=== PATIENT | female | born 1985 | race African-American/Black ===

== ENCOUNTER 2016-09-24 14:35 | Emergency (ER) | payer MEDICAID ==
[~2016-09-24] VITALS: Ht 172.7 cm; Wt 75.0 kg
[2016-09-24] MEDS ORDERED: ONDANSETRON HCL 4MG/2ML VIAL IV STA (15:35)
[2016-09-24] MEDS ORDERED: MORPHINE SULFATE 4 MG/ML CPJ (NOT FOR IM USE) IV STA (15:35)
[2016-09-24] MEDS ORDERED: SODIUM CHLORIDE 0.9% 1,000 ML IV ONE (15:35)
[2016-09-24] MEDS ORDERED: KETOROLAC 30MG/ML VIAL IV ONE (15:45)
[2016-09-24] MEDS ORDERED: CEFTRIAXONE 1 G PREMIX 50 ML IV ONE (15:45)
[2016-09-24 16:08] LABS: BASOPHILS % 0.3 % (0.0-2.0); DIFFERENTIAL COMMENT 0; HEMATOCRIT. 34.6 % (36.0-48.0); HEMOGLOBIN. 10.8 g/dL (12.0-16.0); LYMPHOCYTES % 7.5 % (20.0-50.0); MEAN CORPUSCULAR HEMOGLOBIN 23.3 pg (28.0-32.0); MEAN CORPUSCULAR HGB CONC 31.1 g/dL (31.0-37.0); MEAN CORPUSCULAR VOLUME 74.9 fL (81.0-99.0); MEAN PLATELET VOLUME 8.5 fl (7.4-10.4); MONOCYTES % 4.4 % (2.0-8.0); NEUTROPHILS % 87.8 % (40.0-76.0); PLATELET 190 x1000/uL (130-400); RED BLOOD CELL COUNT 4.62 mill/uL (4.2-5.4); RED CELL DISTRIBUTION WIDTH 17.6 % (11.6-14.6); WHITE BLOOD COUNT 13.9 x1000/uL (4.5-11.0)
[2016-09-24 16:17] LABS: ALBUMIN 3.4 g/dL (3.4-5.0); ANION GAP 13; CALCIUM 8.8 mg/dL (8.5-10.1); CARBON DIOXIDE 30 mEq/L (21-32); CHLORIDE 99 mEq/L (98-107); INDEX HEMOLYSI 1 (1-3); INDEX ICTERIC 1 (1-4); INDEX LIPEMIC 1 (1-3); INR 1.1; LIPASE 62 IU/L (73-393); PARTIAL THROMBOPLASTIN TIME 29.3 sec (24.0-34.0); PROTHROMBIN TIME 11.6 sec; UREA NITROGEN BLOOD 6 mg/dL (7-21)
[2016-09-24 16:22] LABS: HCG SCREEN NEGATIVE
[2016-09-24 16:23] LABS: ALANINE AMINOTRANSFERASE 27 IU/L (13-61); eGFR > 60 mL/min (>60)
[2016-09-24 16:26] LABS: LACTIC ACID 2.6 mmol/L (0.4-2.0)
[2016-09-24] MEDS ORDERED: SODIUM CHLORIDE 0.9% 1000ML BAG (SEPSIS BOLUS) IV ONE (16:45)
[2016-09-24 16:57] VITALS: BP 98/48
== END 2016-09-24 18:11 | disposition left against medical advice (07) ==
LOC: ER 16:26
DX: R10.9 Unspecified abdominal pain (principal); R11.2 Nausea with vomiting, unspecified; R65.10 Systemic inflammatory response syndrome (SIRS) of non-infectious origin without acute organ dysfunction; R39.15 Urgency of urination; R30.0 Dysuria; R07.89 Other chest pain
CPT/HCPCS: 36415; 80053; 83605; 83690; 84703; 85025; 85610; 85730; 87040; 93005; 96361; 96365; 96375; 99285; J0696; J1885; J2270; J2405; J7030; Z7610

== ENCOUNTER 2016-09-25 14:38 | Emergency (ER) | payer MEDICAID ==
[~2016-09-25] VITALS: Ht 157.5 cm; Wt 73.0 kg
[2016-09-25] MEDS ORDERED: SODIUM CHLORIDE 0.9% 1,000 ML IV ONE (17:28)
[2016-09-25] MEDS ORDERED: ONDANSETRON HCL 4MG/2ML VIAL IV STA (17:28)
[2016-09-25] MEDS ORDERED: KETOROLAC 30MG/ML VIAL IV STA (17:28)
[2016-09-25 18:00] LABS: CLARITY URINE CLOUDY (CLEAR); COLOR URINE YELLOW (YELLOW); GLUCOSE URINE NEGATIVE (NEGATIVE); KETONES URINE NEGATIVE (NEGATIVE); LEUKOCYTE ESTERASE URINE 3+ (NEGATIVE); NITRITE URINE NEGATIVE (NEGATIVE); OCCULT BLOOD URINE NEGATIVE (NEGATIVE); PROTEIN URINE NEGATIVE (NEGATIVE); SPECIFIC GRAVITY URINE 1.018 (1.005-1.030)
[2016-09-25 18:01] LABS: BASOPHILS % 0.3 % (0.0-2.0); DIFFERENTIAL COMMENT 0; EOSINOPHILS % 0.7 % (0.0-5.0); HEMOGLOBIN. 9.8 g/dL (12.0-16.0); LYMPHOCYTES % 14.4 % (20.0-50.0); MEAN CORPUSCULAR HEMOGLOBIN 23.6 pg (28.0-32.0); MEAN CORPUSCULAR HGB CONC 31.5 g/dL (31.0-37.0); MEAN CORPUSCULAR VOLUME 74.7 fL (81.0-99.0); MEAN PLATELET VOLUME 8.6 fl (7.4-10.4); MONOCYTES % 7.9 % (2.0-8.0); NEUTROPHILS % 76.7 % (40.0-76.0); PLATELET 186 x1000/uL (130-400); RED BLOOD CELL COUNT 4.15 mill/uL (4.2-5.4); RED CELL DISTRIBUTION WIDTH 17.5 % (11.6-14.6); WHITE BLOOD COUNT 8.8 x1000/uL (4.5-11.0)
[2016-09-25 18:07] LABS: PROTHROMBIN TIME 10.6 sec
[2016-09-25 18:17] LABS: ALANINE AMINOTRANSFERASE 21 IU/L (13-61); ANION GAP 12; CALCIUM 8.4 mg/dL (8.5-10.1); CARBON DIOXIDE 30 mEq/L (21-32); CHLORIDE 102 mEq/L (98-107); INDEX HEMOLYSI 1 (1-3); INDEX ICTERIC 1 (1-4); INDEX LIPEMIC 1 (1-3); LIPASE 170 IU/L (73-393); UREA NITROGEN BLOOD 6 mg/dL (7-21); eGFR > 60 mL/min (>60)
[2016-09-25 18:23] LABS: BACTERIA URINE 1+; RBC URINE 0-2 /hpf (0-2); SQUAMOUS EPITHELIAL CELL URINE 1+ /lpf (RARE/1+)
[2016-09-25] MEDS ORDERED: CEFTRIAXONE 1 G PREMIX 50 ML IV ONE (19:45)
[2016-09-25 19:51] VITALS: BP 102/58
[2016-09-25] MEDS ORDERED: ACETAMINOPHEN WITH CODEINE 300/30MG TABLET PO ONE (20:30)
== END 2016-09-25 20:52 | disposition home or self-care (01) ==
LOC: ER 14:48
DX: N39.0 Urinary tract infection, site not specified (principal); R10.31 Right lower quadrant pain; R10.11 Right upper quadrant pain; F17.200 Nicotine dependence, unspecified, uncomplicated
CPT/HCPCS: 36415; 74176; 80053; 81001; 81025; 83690; 85025; 85610; 96361; 96365; 96375; 99285; J0696; J1885; J2405; J7030; Z7610

== ENCOUNTER 2019-11-21 21:29 | Emergency (ER) | payer MEDICAID ==
[~2019-11-21] VITALS: Ht 162.6 cm; Wt 77.0 kg
[2019-11-21] MEDS ORDERED: KETOROLAC 30MG/ML VIAL IV ONE (22:45)
[2019-11-21 23:11] LABS: HEMATOCRIT 40.3 % (36.0-48.0); HEMOGLOBIN 13.2 g/dL (12.0-16.0); MEAN CORPUSCULAR HEMOGLOBIN 25.3 pg (28.0-32.0); MEAN CORPUSCULAR VOLUME 77.2 fL (81.0-99.0); PLATELET 246 x1000/uL (130-400); RED BLOOD CELL COUNT 5.22 mill/uL (4.2-5.4); RED CELL DISTRIBUTION WIDTH 17.4 % (11.6-14.6)
[2019-11-21 23:19] LABS: CHLORIDE 106 mEq/L (98-107)
[2019-11-21 23:24] LABS: ETHANOL BLOOD < 10 mg/dL
[2019-11-21] MEDS ORDERED: PROPOFOL 200MG/20ML VIAL IV ONE (23:45)
[2019-11-21] MEDS ORDERED: KETAMINE HCL 50 MG/ML 10ML IV ONE (23:45)
[2019-11-22 02:41] VITALS: BP 118/76
== END 2019-11-22 02:41 | disposition home or self-care (01) ==
LOC: ER 21:29
DX: S43.014A Anterior dislocation of right humerus, initial encounter (principal); W01.198A Fall on same level from slipping, tripping and stumbling with subsequent striking against other object, initial encounter; Y93.89 Activity, other specified; Y92.89 Other specified places as the place of occurrence of the external cause; F12.90 Cannabis use, unspecified, uncomplicated; Z72.89 Other problems related to lifestyle
CPT/HCPCS: 23650; 36415; 73020; 73030; 80053; 80320; 85027; 96374; 99152; 99285; J1885; J2704; J3490; G0480

== ENCOUNTER 2020-07-25 22:01 | Emergency (ER) | payer MEDICAID ==
[~2020-07-25] VITALS: Ht 154.9 cm; Wt 69.0 kg
[2020-07-25] MEDS ORDERED: FENTANYL CITRATE/PF 50MCG/ML 2ML VIAL IV ONE (22:30)
[2020-07-25] MEDS ORDERED: KETAMINE HCL 50 MG/ML 10ML IV ONE (23:45)
[2020-07-25] MEDS ORDERED: PROPOFOL 200MG/20ML VIAL IV ONE (23:45)
[2020-07-26 01:54] VITALS: BP 121/74
== END 2020-07-26 01:59 | disposition home or self-care (01) ==
LOC: ER 22:01
DX: S43.004A Unspecified dislocation of right shoulder joint, initial encounter (principal); W06.XXXA Fall from bed, initial encounter; Y93.84 Activity, sleeping; Y92.013 Bedroom of single-family (private) house as the place of occurrence of the external cause; F12.90 Cannabis use, unspecified, uncomplicated
CPT/HCPCS: 73030; 93005; 96374; 99285; J2704; J3010; J3490

== ENCOUNTER 2021-05-10 20:38 | Emergency (ER) | payer MEDICAID ==
[~2021-05-10] VITALS: Ht 157.5 cm; Wt 73.0 kg
[~2021-05-10 20:38] MED LIST: AMOX-424 MT
[2021-05-10] MEDS: DIAZEPAM 5 MG TABLET PO ONE (22:30)
[2021-05-10] MEDS: ONDANSETRON 4MG ODT PO ONE (22:30)
[2021-05-10] MEDS: HYDROCODONE/ACETAMINOPHEN 5/325MG TABLET PO ONE (22:30)
[2021-05-11 00:29] LABS: *BARBITURATES SCREEN URINE NEGATIVE (NEGATIVE)
[2021-05-11 00:31] LABS: *BENZODIAZEPINES SCREEN URINE NEGATIVE (NEGATIVE); *COCAINE SCREEN URINE NEGATIVE (NEGATIVE); METHADONE URINE SCREEN NEGATIVE (NEGATIVE); OPIATES URINE SCREEN NEGATIVE (NEGATIVE); PHENCYCLIDINE URINE SCREEN NEGATIVE (NEGATIVE)
[2021-05-11 00:32] LABS: *AMPHETAMINES SCREEN URINE PRESUMTIVE POSITIVE (NEGATIVE); CANNABINOID URINE SCREEN PRESUMTIVE POSITIVE (NEGATIVE)
[2021-05-11] MEDS ORDERED: IBUP-2029 MT (00:39)
[2021-05-11] MEDS ORDERED: METH-773 MT (00:39)
[2021-05-11 02:11] VITALS: BP 125/79
== END 2021-05-11 02:12 | disposition home or self-care (01) ==
LOC: ER 20:38
DX: M25.511 Pain in right shoulder (principal); M25.521 Pain in right elbow; F12.10 Cannabis abuse, uncomplicated; F15.10 Other stimulant abuse, uncomplicated; Z98.890 Other specified postprocedural states
CPT/HCPCS: 72100; 73030; 73070; 80305; 81025; 99284; Q0162

== ENCOUNTER 2021-09-24 01:05 | Emergency (ER) | payer MEDICAID, OTHER ==
[~2021-09-24] VITALS: Ht 154.9 cm; Wt 73.0 kg
[~2021-09-24 01:05] MED LIST changes: +IBUP-2029 MT; +METH-773 MT
[2021-09-24 01:22] VITALS: BP 138/84
[2021-09-24] MEDS ORDERED: TETRACAINE 0.5% OPHTH DROPS 4ML LEFTEYE ONE (01:45)
[2021-09-24] MEDS ORDERED: FLUORESCEIN SODIUM 1MG/STRIP LEFTEYE ONE (01:45)
[2021-09-24] MEDS ORDERED: POLY10DR LEFTEYE (03:09)
== END 2021-09-24 03:22 | disposition home or self-care (01) ==
LOC: ER 01:05
DX: H10.89 Other conjunctivitis (principal)
CPT/HCPCS: 99283

== ENCOUNTER 2022-05-17 13:26 | Emergency (ER) | payer OTHER ==
[~2022-05-17] VITALS: Ht 175.3 cm; Wt 91.0 kg
[~2022-05-17 13:26] MED LIST changes: +POLY10DR LEFTEYE
[2022-05-17 13:29] VITALS: BP 123/83
== END 2022-05-17 17:16 | disposition left against medical advice (07) ==
LOC: ER 13:26
DX: Z53.21 Procedure and treatment not carried out due to patient leaving prior to being seen by health care provider (principal)

== ENCOUNTER 2022-08-14 17:05 | Emergency (ER) | payer MEDICAID, OTHER ==
[~2022-08-14] VITALS: Ht 154.9 cm; Wt 73.0 kg
[2022-08-14 17:19] VITALS: BP 130/80
== END 2022-08-14 20:47 | disposition left against medical advice (07) ==
LOC: ER 17:05
DX: M25.511 Pain in right shoulder (principal); H92.02 Otalgia, left ear
CPT/HCPCS: 73030; 99283

== ENCOUNTER 2023-02-01 03:41 | Emergency (ER) | payer OTHER ==
[~2023-02-01] VITALS: Ht 154.9 cm; Wt 73.2 kg
[2023-02-01 03:45] VITALS: BP 135/97; RESP 12; TEMP 98; O2SAT 100
[2023-02-01 03:47] VITALS: PULSE 120
[2023-02-01] MEDS ORDERED: ACETAMINOPHEN 325MG TABLET PO ONE (04:15)
[2023-02-01] MEDS ORDERED: CLIN-194 MT (05:23)
[2023-02-01] MEDS ORDERED: LIDOCAINE HCL/PF 1% 10 MG/ML 5ML VIAL INFIL ONE (05:30)
[2023-02-01] MEDS ORDERED: AMOX1TAB16 MT (05:59)
[2023-02-01] MEDS ORDERED: NAPR-1176 MT (06:00)
[2023-02-01] MEDS ORDERED: KETOROLAC 30MG/ML VIAL IM ONE (06:00)
== END 2023-02-01 06:29 | disposition home or self-care (01) ==
LOC: ER 03:41
DX: L03.012 Cellulitis of left finger (principal); Z98.890 Other specified postprocedural states
CPT/HCPCS: 81025; 73130; 10060; 99283; J1885; J3490; Z7610 ×2

== ENCOUNTER 2023-05-11 01:21 | Emergency (ER) | payer OTHER ==
[~2023-05-11] VITALS: Ht 160 cm; Wt 73.0 kg
[~2023-05-11 01:21] MED LIST changes: +AMOX1TAB16 MT; +NAPR-1176 MT
[2023-05-11 01:23] VITALS: BP 139/95; RESP 18; TEMP 98.1; O2SAT 100
[2023-05-11 01:24] VITALS: PULSE 100
[2023-05-11] MEDS ORDERED: CEPH500T MT (01:44)
[2023-05-11] MEDS ORDERED: TETANUS, DIPHTHERIA, PERTUSSIS VAC/PF 0.5ML (>10YR OLD) IM ONE (01:45)
== END 2023-05-11 02:31 | disposition home or self-care (01) ==
LOC: ER 01:25
DX: K13.0 Diseases of lips (principal); F12.10 Cannabis abuse, uncomplicated; Z79.899 Other long term (current) drug therapy
CPT/HCPCS: 90715; 90471; 99283; Z7610

== ENCOUNTER 2024-01-26 12:04 | Emergency (ER) | payer OTHER ==
[~2024-01-26] VITALS: Ht 154.9 cm; Wt 82.0 kg
[~2024-01-26 12:04] MED LIST changes: +CEPH500T MT
[2024-01-26 12:08] VITALS: O2SAT 100
[2024-01-26 12:38] LABS: BASOPHILS % 0.5 % (0.0-2.0); DIFFERENTIAL COMMENT 0; EOSINOPHILS % 1.9 % (0.0-5.0); HEMATOCRIT. 33.8 % (36.0-48.0); HEMOGLOBIN. 10.7 g/dL (12.0-16.0); LYMPHOCYTES % 23.5 % (20.0-50.0); MEAN CORPUSCULAR HGB CONC 31.6 g/dL (31.0-37.0); MEAN CORPUSCULAR VOLUME 72.7 fL (81.0-99.0); MEAN PLATELET VOLUME 8.1 fl (7.4-10.4); NEUTROPHILS % 69.1 % (40.0-76.0); PLATELET 260 x1000/uL (130-400); RED BLOOD CELL COUNT 4.64 mill/uL (4.2-5.4); RED CELL DISTRIBUTION WIDTH 18.1 % (11.6-14.6); WHITE BLOOD COUNT 6.2 x1000/uL (4.5-11.0)
[2024-01-26 12:52] LABS: CHLORIDE 103 mEq/L (98-107); POTASSIUM 3.9 mEq/L (3.5-5.1); SODIUM 138 mEq/L (136-145)
[2024-01-26 12:53] LABS: CALCIUM 9.3 mg/dL (8.7-10.4); CARBON DIOXIDE 30 mEq/L (21-32)
[2024-01-26 12:57] LABS: PROTHROMBIN TIME 10.8 sec (9.6-11.0)
[2024-01-26 12:58] LABS: CREATININE 0.9 mg/dL (0.6-1.0); GLUCOSE 115 mg/dL (70-105); UREA NITROGEN BLOOD 8 mg/dL (9-23)
[2024-01-26 13:00] LABS: ALANINE AMINOTRANSFERASE 11 IU/L (10-49); ALBUMIN 4.3 g/dL (3.2-4.8); ASPARTATE AMINOTRANSFERASE 18 IU/L (<34); BILIRUBIN DIRECT 0.2 mg/dL (<=3.0)
[2024-01-26 13:01] LABS: BILIRUBIN TOTAL 0.5 mg/dL (0.1-1.0); PROTEIN TOTAL 7.4 g/dL (6.0-8.3)
[2024-01-26 13:24] LABS: HCG SCREEN NEGATIVE
[2024-01-26 13:28] LABS: TROPONIN I HIGH SENSITIVITY < 4 ng/L (3.0-34)
[2024-01-26] MEDS: MAGNESIUM/ALUMINUM HYDROXIDE/SIMETHICONE 30ML UDC PO STA (13:32)
[2024-01-26 15:02] VITALS: BP 133/77; PULSE 86; RESP 18; TEMP 98.9
== END 2024-01-26 15:02 | disposition home or self-care (01) ==
LOC: ER 12:04
DX: B34.9 Viral infection, unspecified (principal); F12.10 Cannabis abuse, uncomplicated; Z79.899 Other long term (current) drug therapy
CPT/HCPCS: 36415; 71045; 80048; 80076; 84484; 84703; 85025; 93005; 99285

== ENCOUNTER 2024-02-11 18:15 | Emergency (ER) | payer OTHER ==
[~2024-02-11] VITALS: Ht 167.6 cm; Wt 98.0 kg
[2024-02-11 18:20] VITALS: BP 136/82; PULSE 102; RESP 20; TEMP 98.8; O2SAT 100
[2024-02-11] MEDS ORDERED: SULF1TAB48 MT (19:59)
[2024-02-11] MEDS ORDERED: CEPH500T MT (19:59)
== END 2024-02-11 20:53 | disposition home or self-care (01) ==
LOC: ER 18:15
DX: L03.012 Cellulitis of left finger (principal); F12.90 Cannabis use, unspecified, uncomplicated
CPT/HCPCS: 73140; 99283

== ENCOUNTER 2024-11-12 10:04 | Emergency (ER) | payer OTHER ==
[~2024-11-12] VITALS: Ht 157.5 cm; Wt 73.0 kg
[~2024-11-12 10:04] MED LIST changes: +SULF1TAB48 MT
[2024-11-12 10:05] VITALS: O2SAT 98
[2024-11-12 10:08] VITALS: BP 180/120; PULSE 96; RESP 19; TEMP 36.8; O2SAT 98
[2024-11-12] MEDS ORDERED: CIPR1DRO2 LEFT EAR (10:56)
[2024-11-12] MEDS ORDERED: IBUPROFEN 600MG TABLET PO ONE (11:00)
== END 2024-11-12 10:53 | disposition left against medical advice (07) ==
LOC: ER 10:04
DX: H66.92 Otitis media, unspecified, left ear (principal); F12.10 Cannabis abuse, uncomplicated; Z79.899 Other long term (current) drug therapy
CPT/HCPCS: 99283

== ENCOUNTER 2024-11-12 21:43 | Emergency (ER) | payer OTHER ==
[~2024-11-12] VITALS: Ht 157.5 cm; Wt 75.0 kg
[~2024-11-12 21:43] MED LIST changes: +CIPR1DRO2 LEFT EAR
[2024-11-12 21:56] VITALS: BP 131/98; PULSE 92; RESP 18; TEMP 36.9; O2SAT 100; O2SAT 99
== END 2024-11-12 22:40 ==
LOC: ER 21:43
DX: H92.02 Otalgia, left ear (principal); Z53.21 Procedure and treatment not carried out due to patient leaving prior to being seen by health care provider